=== PATIENT | female | born 2005 | race Caucasian/White ===

== ENCOUNTER 2025-03-31 11:45 | Day surgery (SDC) | payer BC ==
[2025-03-26 11:39] VITALS: BMI 23.1
[2025-03-31] MEDS ORDERED: PROPOFOL 40 ML ONE (13:41)
[2025-03-31] MEDS ORDERED: Lidocaine 1% PF 5 ML VIAL ONE (13:42)
[2025-03-31] MEDS ORDERED: Ondansetron PF 4 MG/2 ML Vial ONE ×2 (14:21→16:23)
[2025-03-31] MEDS ORDERED: Ondansetron PF 4 MG/2 ML Vial IVP PRN (14:30)
[2025-03-31] MEDS ORDERED: Ropivacaine 0.2% 550 ML 550 ML NERVE BLCK SCH (14:30)
[2025-03-31] MEDS ORDERED: HYDROcodone/Acetaminophen 5/325 mg Tablet ONE (17:07)
== END 2025-03-31 17:27 | disposition home or self-care (01) ==
LOC: CSHSDC 11:45
PROVIDERS: ATTEND Podiatrist Foot & Ankle Surgery
PROC: 0QBQ0ZZ Excision of Right Toe Phalanx, Open Approach (ICD-10-PCS; principal; 2025-03-31)
DX: M20.11 Hallux valgus (acquired), right foot (principal); M20.12 Hallux valgus (acquired), left foot
CPT/HCPCS: A4306; C1713; C1769; C1776; J0665; J1100; J2250; J2405; J2704; J2795; J3010; J3301

== ENCOUNTER 2025-05-26 09:45 | Outpatient (CLI) | payer BC | END 2025-05-26 09:46 | disposition home or self-care (01) | LOC: CSHWCC 09:45 | PROVIDERS: ATTEND Nurse Practitioner Family | DX: T81.31XD Disruption of external operation (surgical) wound, not elsewhere classified, subsequent encounter (principal); L97.511 Non-pressure chronic ulcer of other part of right foot limited to breakdown of skin | CPT/HCPCS: 11042 ==

== ENCOUNTER 2025-06-02 10:04 | Outpatient (CLI) | payer BC | END 2025-06-02 10:05 | disposition home or self-care (01) | LOC: CSHWCC 10:04 | PROVIDERS: ATTEND Nurse Practitioner Family | DX: T81.31XD Disruption of external operation (surgical) wound, not elsewhere classified, subsequent encounter (principal); L97.511 Non-pressure chronic ulcer of other part of right foot limited to breakdown of skin | CPT/HCPCS: 11042; 99212; G0463 ==

== ENCOUNTER 2025-06-16 14:54 | Outpatient (CLI) | payer BC | END 2025-06-16 14:55 | disposition home or self-care (01) | LOC: CSHWCC 14:54 | PROVIDERS: ATTEND Nurse Practitioner Family | DX: T81.31XD Disruption of external operation (surgical) wound, not elsewhere classified, subsequent encounter (principal); L97.511 Non-pressure chronic ulcer of other part of right foot limited to breakdown of skin | CPT/HCPCS: 99212; G0463 ==

== ENCOUNTER 2025-06-30 15:01 | Outpatient (CLI) | payer BC | END 2025-06-30 15:02 | disposition home or self-care (01) | LOC: CSHWCC 15:01 | PROVIDERS: ATTEND Nurse Practitioner Family | DX: Z09 Encounter for follow-up examination after completed treatment for conditions other than malignant neoplasm (principal); Z87.2 Personal history of diseases of the skin and subcutaneous tissue | CPT/HCPCS: 99212; G0463 ==